=== PATIENT | female | born 1950 | race Caucasian/White ===

== ENCOUNTER 2018-06-17 17:18 | Emergency (ER) | payer SELFPAY ==
--- NOTE | 2018-06-17 18:46 | EDPHY ---
Addendum entered and electronically signed by Elida Benito PAC 06/17/18 19:24: Addendum: Patient and granddaughter informed me that she does not want to follow up here in the [place] and wishes to follow up when she returns to [place]. She understands that this injury most likely will require surgery. She understands the risk and benefits of decreased range of motion, neurovascular compromise. Original Note: H & P Stated Complaint: SLIPPED GETTING OUT OF SHOWER FRIDAY INJ L SHOULDER Time Seen by Provider: 06/17/18 18:45 HPI/ROS: HPI: This is a 67-year-old female who presents with Chief Complaint: SLIPPED GETTING OUT OF SHOWER FRIDAY INJ L SHOULDER Location: Left shoulder Quality: Injury Duration: 2 days ago Signs and Symptoms: No bleeding, no radiation, no numbness, no weakness, no tingling, no incontinence, + decreased range of motion, no swelling, + pain, no fever Timing: Acute Severity: 06/05 Context: Patient recently arrived from [place] to the area to live with her family and presents with accidentally falling on while getting out of the shower 2 days ago. She reports that she fell directly on left shoulder. Since that time she has noted decreased range of motion inability to raise her arm to heart level. She reports that the pain is constant, mild, nonradiating in nature. Any movement increases the pain. Denies LOC/head injury/neck pain/ dizziness/nausea/vomiting/amnesia. Patient is right-hand dominant. Patient has no insurance or primary care provider. Modifying Factors: None Comment: ROS: see HPI Constitutional: No fever, no chills, no weight loss Eyes: No blurred vision Respiratory: No shortness of breath, no cough Cardiovascular: No chest pain Gastrointestinal: No nausea, no vomiting no diarrhea Genitourinary: No dysuria Extremities: No myalgias Neurologic: No weakness, no numbness Skin: No rashes Hematologic: No bruising, no bleeding MEDICAL/SURGICAL/SOCIAL HISTORY: Medical history: Generally healthy. Does not take any regular medications. Surgical history: Denies Social history: Never smoked. CONSTITUTIONAL: Overweight pleasant elderly petite female, awake and alert, no obvious distress HEENT: Atraumatic and normocephalic. NECK: supple, no midline tenderness, flexion 45 degrees, extension 45 degrees, right and left lateral flexion 45 degrees. No meningismus. Cardiovascular: Normal S1/S2, regular rate, regular rhythm, without murmur rub or gallop. PULMONARY/CHEST: Symmetrical and nontender. no crepitus. Clear to auscultation bilaterally. Good air movement. No accessory muscle usage. ABDOMEN: Soft, nondistended, nontender, no ecchymosis. PELVIC: no pain with rocking; bilateral hips flexion 125 degrees, extension 30 degrees, with no pain internal rotation and no pain external rotation. BACK: No midline tenderness, no paraspinous spasm, deep tendon reflexes 2/2, no pain with straight leg raise, No foot drop. Achilles reflexes are equal bilaterally. Able to walk on heels and toes without difficulty. EXTREMITIES: 2/2 radial pulses, adult strength 5/5, SHOULDER: Able to perform shoulder shrug without difficulty. Mild Tenderness to palpation over AC joint. Holds arm abducted against the chest. DIP/PIP/MCP flexion/extension intact with good light touch sensation. no deformities, no clubbing, no cyanosis or edema. NEUROLOGICAL: no focal neuro deficits. GCS 15. Light touch sensation intact. SKIN: Warm and dry, no erythema. no rash. Good capillary refill. Source: Patient, Family (Granddaughter's), [employer] Exam Limitations: Language barrier (Qatari) - Personal History Current Tetanus Diphtheria and Acellular Pertussis (TDAP): Yes - Medical/Surgical History Hx Asthma: No Hx Chronic Respiratory Disease: No Hx Diabetes: No Hx Cardiac Disease: No Hx Renal Disease: No Hx Cirrhosis: No Hx Alcoholism: No Hx HIV/AIDS: No Hx Splenectomy or Spleen Trauma: No Other PMH: DENIES - Social History Smoking Status: Current every day smoker Constitutional: Initial Vital Signs Temperature (C) 37.1 C 06/17/18 17:22 Heart Rate 79 06/17/18 17:22 Respiratory Rate 17 06/17/18 17:22 Blood Pressure 130/66 H 06/17/18 17:22 O2 Sat (%) 92 06/17/18 17:22 O2 Delivery Mode Room Air Allergies/Adverse Reactions: No Known Allergies Allergy (Unverified 06/17/18 17:21) Home Medications: Medication Instructions Recorded oxyCODONE/APAP 5/325 [Percocet 1 - 2 tab PO Q4H PRN #20 tab 06/17/18 5/325 (*)] Medical Decision Making - Diagnostics Imaging Results: Imaging Impressions Shoulder X-Ray 06/17/18 17:25 Impression: Displaced glenoid fracture. Recommend CT of the shoulder for preoperative evaluation. Results discussed with Dr. Valadez at 5:[address] 06/17/18 17:57 Impression: 1. Mildly displaced fracture of the inferior glenoid with intra-articular extension. 2. Left thyroid nodule measuring 1.6 cm. Would consider ultrasound evaluation. 3. Mildly prominent mediastinal and prevascular lymph nodes, which may be reactive. Procedures: Procedure: Splint placement. A left sling was applied by the Emergency Room teletype technician. After application of the splint I returned and re-examined the patient. The splint was adequately immobilizing the joint and distal to the splint the patient's circulation and sensation was intact. ED Course/Re-evaluation: Left shoulder x-ray obtained and shows totally displaced fracture fragment involving at least 20% of the anterior-inferior glenoid. CT of the upper extremity ordered and shows mild displaced fracture of the inferior glenoid with intra-articular extension as well as left thyroid nodule recommendation for ultrasound follow-up. Patient placed in a sling. Given Percocet x1 with adequate pain control. Orthopedic follow-up. No signs of neurovascular compromise/tenting of skin/compartment syndrome/ extremities and joints examined above and below area of concern and are neurovascularly intact. This patient was seen under the supervision of my secondary supervising physician. I evaluated care for this patient independently. Discussed this patient with Dr. Valadez. Differential Diagnosis: Differential diagnosis includes glenoid fracture. - Data Points Medications Given: Discontinued Medications Oxycodone/Acetaminophen (Percocet 5/325) 1 tab PO EDNOW ONE Stop: 06/17/18 18:54 Last Admin: 06/17/18 18:58 Dose: 1 tab Departure - Departure Disposition: Home, Routine, Self-Care Clinical Impression: Fracture of glenoid process of left scapula Condition: Good Instructions: Scapular Fracture (ED), How to Use a Sling (ED), Closed Reduction Internal Fixation of an Upper Extremity Fracture (DC) Additional Instructions: Wear the sling / until seen by Orthopedics. Take Tylenol 650 mg every 4 hours and/or Ibuprofen 600 mg every 8 hours with food as needed for pain. Use Percocet every 6 hours as needed for severe/break through pain. Do not use Tylenol and Percocet at the same time. Apply ice for 30 minutes at a time; 2-3 times per day for the next 1-2 days. Follow up with Orthopedics in 3-5 days days at which time they will evaluate and recommend with you if conservative management versus surgery is indicated. Establish care at the [facility] for primary care. [employer] a la nurys de emergencia de inmediato si siente dolor nuevo o que empeora , descoloracin, entumecimiento, cosquilleo u otros sntomas que le preocupan. Follow-Up: Please follow-up as noted above. Follow up sooner if your condition worsens or if you develop any new problems Call as soon as possible for an appointment. Be clear when you call for an appointment that this is an Emergency Department follow-up. Contact the Emergency Department if you are having trouble arranging follow up care. Our referrals are not based on your insurance network. When time allows, contact your insurance carrier to verify the referral physician is in your plan. If not, get a referral for an in-network technology instructor. Please ask us if you have any questions. Referrals: Kalpesh Connors MD [Medical Doctor] - As per Instructions [facility] [Clinic] - As per Instructions Prescriptions: oxyCODONE/APAP 5/325 [Percocet 5/325 (*)] 1 - 2 tab PO Q4H PRN #20 tab PRN Reason: Pain, Severe
[2018-06-17] MEDS ORDERED: OXYCODONE/APAP 5/325 TAB PO ONE (18:53)
[2018-06-17 19:38] VITALS: BP 114/62
== END 2018-06-17 19:38 | disposition home or self-care (01) ==
DX: S42.142A Displaced fracture of glenoid cavity of scapula, left shoulder, initial encounter for closed fracture (principal); F17.200 Nicotine dependence, unspecified, uncomplicated; W01.0XXA Fall on same level from slipping, tripping and stumbling without subsequent striking against object, initial encounter; Y93.E1 Activity, personal bathing and showering
CPT/HCPCS: A4565